=== PATIENT | female | born 1950 | race Caucasian/White ===

== ENCOUNTER → 2017-12-29 | Day surgery (SDC) | payer MEDICARE ==
[~2017-12-29] MED LIST: CENTTAB9 PO; CHOL1CAP6 PO; COZA100T PO; GENTAMICIN SULFATE 80 MG/2 ML VIAL ONE; LACTATED RINGER'S 1000 ML INJ 1,000 ML ONE; MIDAZOLAM HCL 2 MG/2 ML VIAL ONE; ONDANSETRON HCL 4 MG/2 ML VIAL IV PUSH ONE; PREM0.3T2 PO; PROPOFOL 200 MG/20 ML AMP IV ONE; SODIUM CHLORIDE 0.9% 100 ML BAG IV ONE; VITA10002 PO; VITA400C70 PO; ZOLP10TA3 PO
--- NOTE | 2017-12-29 13:26 | TN ---
cc: Chuck Raya MD DATE OF SURGERY: 12/29/2017 DATE OF PROCEDURE: 12/29/2017 PREOPERATIVE DIAGNOSIS: Left renal calculus (17 mm) (ICD-10 code N20.0). POSTOPERATIVE DIAGNOSIS: Left renal calculus (17 mm) (ICD-10 code N20.0). PROCEDURE PERFORMED: Cystourethroscopy with attempted left ureteroscopy and left double-J ureteral stent placement (6-Greenlandic x 22 cm) (CPT code 65951). INDICATION FOR PROCEDURE: Ms. 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 The findings are normal urethra. Ureteral orifice normal size, shape and position, effluxing clear urine bilaterally. No mai tumors, abnormal mucosa or calcifications identified. There is a radiopaque 17 mm stone in the renal pelvis on the left. DESCRIPTION OF PROCEDURE: The procedure as well as risks and benefits were explained to the patient, informed consent was obtained, and the patient was taken to the major operative theater where she was placed in supine position. The patient was identified as well as the operative site. A universal timeout was performed in the standard fashion. At this time, general anesthetic and prophylactic intravenous antibiotics consisting of gentamicin 80 mg was administered. After adequate anesthetic, she was placed in the low dorsal lithotomy position, prepped and draped in the usual sterile fashion. At this time, a 22.5-Greenlandic obturator and sheath were placed into the bladder, the obturator removed and a 30-degree cystoscope was placed, the bladder was systematically surveyed and attention was directed to the left ureteral orifice, which appeared to be within normal limits. At this time, a 0.035 inch hybrid wire was placed under fluoroscopic guidance up the ureter into the renal pelvis past the stone without difficulty. A second wire was then placed. This was a 0.035 inch David guidewire. This was used as a working wire and the first wire was used as a safety wire and attached to the drapes. At this time, attempts at passing a semi-rigid mini ureteroscope and up the ureter were unsuccessful due to narrowing at the distal ureter. At that time, a decision was made to abort the case and just place a stent for passive dilation and then come back in 10-14 days for definitive treatment using an access sheath and a flexible scope. At this time, the working wire was removed along with ureteroscope and the safety wire was backloaded onto the cystoscope and over the cystoscope, a 6-Greenlandic x 22 cm double-J ureteral stent was placed under fluoroscopic guidance. When the proximal end could be seen in the renal pelvis, the wire and pusher were removed and there was a nice curl within the renal pelvis and under direct vision in the bladder. The bladder was then decompressed and the cystoscope removed. The patient tolerated the procedure well, emerged from anesthetic without difficulty and transferred to the recovery room in stable condition to be discharged home when criteria is met. There were no obvious complications. MD BAYLEE Negron/ADRIANA , 01:05 PM , 01:25 PM
== END | disposition home or self-care (01) ==
LOC: ESDC 08:22
PROVIDERS: ATTEND Urology
DX: N20.0 Calculus of kidney (principal)
CPT/HCPCS: 00910; 52332; 76000; C1769; J1580; J2250; J2405; J3010; J7120

== ENCOUNTER → 2018-01-12 | Day surgery (SDC) | payer MEDICARE ==
[~2018-01-12] MED LIST changes: +MORPHINE SULFATE 2 MG/ML SYRINGE ONE
--- NOTE | 2018-01-12 17:58 | TN ---
cc: Chuck Raya MD DATE OF SURGERY: 01/12/2018 PREOPERATIVE DIAGNOSES: Left renal calculus (1.7 cm) (ICD-10 code N20.0). POSTOPERATIVE DIAGNOSIS: Left renal calculus (1.7 cm) (ICD-10 code N20.0). PROCEDURE: Cystourethroscopy with left ureteroscopic holmium laser lithotripsy with double-J ureteral stent exchange (6-Marshallese x 22 cm) (CPT code 79287-[id number]). INDICATIONS: Ms. Posey is a 67-year-old woman who is on chronic anticoagulation, who has a 1.7 mm renal pelvic stone, presents now for definitive treatment. FINDINGS: Normal urethra. The bladder shows the right ureteral orifice, normal size, shape and position, effluxing clear urine. Left ureteral orifice shows a distal portion of the double-J ureteral stent emerging with evidence of bullous edema. The remainder of the bladder is essentially unremarkable. No stones or tumors. The ureter is dilated all the way up to the area of the renal pelvis, where there was significant bullous edema surrounding a 1.7 cm ho, solid, round stone. The edema surrounding the stone makes it somewhat difficult to adequately visualize. The pelvocaliceal system is within normal limits. No additional stones identified. DESCRIPTION OF PROCEDURE: The procedure as well as risks and benefits were explained to the patient. Informed consent was obtained. The patient was taken to major operative theater where she was placed in supine position. The patient was identified as well as the operative side. A universal timeout was performed in the standard fashion. At this time, general anesthetic and prophylactic intravenous antibiotics consisting of gentamicin 80 mg was administered. After adequate anesthetic, she was placed in the low dorsal lithotomy position, prepped and draped in the usual sterile fashion. At this time, a 22.5-Marshallese obturator and sheath were placed into the bladder. The obturator removed and a 30-degree lens cystoscope. The distal end of the previously placed ureteral stent was identified and then grasped with a grasper and brought out to the meatus, where a 0.035 inch guidewire was used fluoroscopically to advance the guidewire through the stent and up to the renal pelvis. The stent was removed, leaving the guidewire in place. The wire was attached to the drape as a safety guidewire. A second guidewire was then placed and 13/15 access sheath was placed without difficulty and then attached to the drapes. At this time, a flexible ureteroscope was then passed through the access sheath to the level of the stone. However, due to the bullous edema, we were unable to adequately use the flexible scope. We were unable to visualize both the stone and the laser fiber due to the edema and difficulty with the location of the stone. At this time, since the stone was in the renal pelvis, decision was made to remove the access sheath and use a rigid ureteroscope and to see if we could pulverize the stone with the rigid scope and without an access sheath. At this time, the access sheath was removed under direct vision along with the flexible scope, and then the semi-rigid ureteroscope was then placed under direct vision up the ureter to the level of the renal pelvis where the stone was identified. Due to the greater flow of fluid and greater ability to access the stone, the stone could be easily approached. At this time, using a 200 micron laser fiber on a dusting setting, the stone was dusted into small pieces. It took over 3 hours to dust the stone into small particles until there was no visualized initial stone left and only stone debris. At this time, the ureteroscope was removed, and the safety wire was backloaded onto cystoscope and a 6-Marshallese x 20 cm double-J ureteral stent was placed with the help of a pusher. When the proximal end could be seen in the renal pelvis under fluoroscopy, the pusher and guidewire were removed. The distal end could be seen curling nicely in the bladder. The bladder was then decompressed and the scope removed. The patient tolerated the procedure well, emerged from anesthetic without difficulty and transferred to the recovery room in stable condition to be discharged home when criteria is met. Due to the overall size of the stone of over 1.7 cm and a lasing time of almost 3 hours, there was a modifier 22 appended to the dictation due to unusual and prolonged procedural services from extensive use of laser lithotripsy due to the overall size of the renal pelvic stone. MD BAYLEE Negron/RAHUL , 05:30 PM , 05:57 PM BARBAR[facility]
== END | disposition home or self-care (01) ==
LOC: ESDC 11:18
PROVIDERS: ATTEND Urology
DX: N20.0 Calculus of kidney (principal)
CPT/HCPCS: 00918; 52356; 76000; C1769; J1580; J2250; J2270; J2405; J3010; J7120